=== PATIENT | female | born 1990 | race Caucasian/White ===

== ENCOUNTER → 2023-08-11 14:08 | Outpatient (REF) | payer BC, SELFPAY | LOC: PNTC 14:08 | PROVIDERS: ATTENDING PHYSICIAN Obstetrics & Gynecology | DX: O34.10 Maternal care for benign tumor of corpus uteri, unspecified trimester (principal) | CPT/HCPCS: 76805 ==

== ENCOUNTER 2024-01-16 13:24 | Inpatient (IN) | payer BC, SELFPAY ==
[2024-01-16 13:33] VITALS: BP 129/89; BMI 31.9
[2024-01-16 13:54] LABS: % Basophils 0.4 % (0-2); % Eosinophils 0.5 % (0-6); % Immature Granulocytes 0.6 % (0-0.5); % Lymphocytes 24.1 % (20.5-51.1); % Monocytes 9.5 % (1.7-9.3); % Neutrophils 64.9 % (42.2-75.2); Absolute Eosinophils 0.1 10^3/uL (0-0.7); Absolute Immature Granulocytes 0.1 10^3/uL (0-0.05); Absolute Lymphocytes 2.6 10^3/uL (1.2-3.4); Mean Corp Hgb Conc. 34.3 g/dL (33.0-37.0); Mean Corpuscular Hgb 29.6 pg (27.0-31.0); Mean Corpuscular Volume 86.4 fL (81.0-99.0); Mean Platelet Volume 10.6 fL (7.4-10.4); Nucleated Red Blood Cells % 0 %; Platelet Count 281 10^3/uL (130-400); Red Blood Cell Count 4.05 10^6/uL (4.20-5.40); Red Cell Dist. Width 13.9 % (11.5-14.5); White Blood Cell Count 10.8 10^3/uL (4.8-10.8)
[2024-01-16] MEDS: SUBLIMAZE 100 MCG EPIDURAL (16:35)
[2024-01-16] MEDS: FENTANYL/BUPIVACAINE 100 EPIDURAL ×2 (16:36→23:13)
[2024-01-16] MEDS: LR 1000 IV (17:08)
[2024-01-17] MEDS: FENTANYL/BUPIVACAINE 100 EPIDURAL ×2 (07:01→13:41)
[2024-01-17] MEDS: LR 1000 IV (11:10)
[2024-01-17] MEDS: PITOCIN 30 UNITS/NSS 500 ML IV (14:17)
[2024-01-17 14:35] LABS: Cord ABG Comment CORD BLOOD
[2024-01-17 14:37] LABS: B.E. Cord ABG -3.3 mMOL/L; HCO3 Cord ABG 22.1 mmol/L; O2 Saturation % Cord ABG 67.9 %; PCO2 Cord ABG 40 mmHg; PO2 Cord ABG 31 mmHg; pH Cord ABG 7.35
[2024-01-17] MEDS: TYLENOL 650 MG PO (16:00)
[2024-01-18 04:57] LABS: Hematocrit 31.2 % (37.0-47.0); Hemoglobin 10.7 g/dL (12.0-16.0)
[2024-01-18] MEDS: PRENATAL PLUS 1 TABLET PO (08:41)
[2024-01-18] MEDS: MOTRIN 600 MG PO (15:12)
[2024-01-19] MEDS: MOTRIN 600 MG PO (03:21)
[2024-01-19] MEDS: PRENATAL PLUS 1 TABLET PO (08:10)
[2024-01-20 16:07] LABS: Syphilis/T. pallidum Ab Reflex Negative (Negative)
== END 2024-01-19 10:48 | disposition home or self-care (01) | DRG 807 ==
LOC: LDRP 13:24
PROVIDERS: Obstetrics & Gynecology; ADMITTING PHYSICIAN Obstetrics & Gynecology
PROC: 10907ZC Drainage of Amniotic Fluid, Therapeutic from Products of Conception, Via Natural or Artificial Opening (ICD-10-PCS; 2024-01-17)
PROC: 0UQMXZZ Repair Vulva, External Approach (ICD-10-PCS; 2024-01-17)
PROC: 10D07Z8 Extraction of Products of Conception, Other, Via Natural or Artificial Opening (ICD-10-PCS; 2024-01-17)
DX: O69.81X0 Labor and delivery complicated by cord around neck, without compression, not applicable or unspecified (principal); Z37.0 Single live birth; O76 Abnormality in fetal heart rate and rhythm complicating labor and delivery; O69.82X0 Labor and delivery complicated by other cord entanglement, without compression, not applicable or unspecified; O70.0 First degree perineal laceration during delivery; Z3A.39 39 weeks gestation of pregnancy
CPT/HCPCS: 88307; 36415; 82803; 85014; 85018; 85025; 86780; 86850; 86900; 86901